=== PATIENT | male | born 1990 | race Caucasian/White ===

== ENCOUNTER 2017-02-08 06:47 | Observation (INO) ==
[2017-02-08] MEDS ORDERED: *HR* HYDROmorphone (PF) 1 MG/ML SYRINGE IVP ONE (08:04)
[2017-02-08] MEDS ORDERED: Ondansetron 4 MG/2 ML VIAL IVP ONE ×2 (08:05→10:53)
[2017-02-08] MEDS ORDERED: Dexamethasone 4 MG/ML VIAL IVP ONE (08:48)
[2017-02-08 09:08] LABS: Basophils % 0.1 %; Hematocrit 45.6 % (37.5-50.1); Hemoglobin 15.5 g/dL (12.9-16.9); Immature Granulocytes % 0.3 % (0-4); Lymphocytes # 1.3 K/mcL (0.6-4.6); Mean Corpuscular Hemoglobin 29.9 pg (28.0-33.3); Mean Corpuscular Volume 87.9 fL (83.0-100.0); Mean Platelet Volume 9.3 fL (9.4-12.4); Monocytes # 1.6 K/mcL (0.0-1.3); Monocytes % 8.5 %; Neutrophils # 15.6 K/mcL (1.6-8.9); Platelet Count 230 K/mcL (140-400); Red Blood Count 5.19 M/mcL (4.19-5.50); Red Cell Distribution Width 12.1 % (11.5-14.5); Segmented Neutrophils % 84.1 %
[2017-02-08 09:25] LABS: BUN/Creatinine Ratio 13 (6-26); Blood Urea Nitrogen 11 mg/dL (8-26); Calcium 9.7 mg/dL (8.6-10.8); Carbon Dioxide 24 mEq/L (19-29); Chloride 104 mEq/L (98-109); Glucose 100 mg/dL (70-99); Osmolality,Calculated 287 (280-300); Potassium 3.9 mEq/L (3.5-4.5); Sodium 139 mEq/L (136-145); eGFR For African Americans > 60 (> 60); eGFR For Non-African Americans > 60 (> 60)
--- NOTE | 2017-02-08 09:26 | Emergency Department Note ---
Disposition Clinical Impression: Facial cellulitis Sepsis Qualifiers: Sepsis type: sepsis due to unspecified organism Qualified Code(s): A41.9 - Sepsis, unspecified organism Disposition: Admitted As Inpatient Condition: Fair Time of Disposition: 10:55 Dental HPI - General Chief complaint: ED General Medical Stated complaint: facial swelling/dental Time Seen by Provider: 02/08/17 07:20 Source: patient Mode of arrival: ambulatory Limitations: no limitations Nursing Notes Reviewed: Yes Vital Signs Reviewed: Yes - History of Present Illness HPI Narrative: 26-year-old male with left maxillary facial swelling, have #10 tooth infection, he was seen by a dentist yesterday and they were concerned that he had a facial abscess. Patient states that he is mostly concerned because he was given a prescription for clindamycin, he did take a few pills, he was given 300 mg 4 times a day, but he also had several episodes of emesis he states that the pain and the swelling in his left face is worse since yesterday Pt Subjective Complaint: dental pain Location: Tooth # (10) 1 - swelling pain Onset (ago): day(s) (3) Duration: intermittent Pain Severity: moderate Pain scale (1-10): 7 Improves with: nothing, NSAIDs (Ibuprofen) Context: history of dental caries Associated symptoms: Reports: none, fever. Denies: gum swelling, tongue swelling, pain with swallowing, ear pain, sore throat Treatment prior to arrival: oral analgesic (NSAIDS) - Related Data Home Medications Medication Instructions Recorded Confirmed Benzocaine 20% [Orajel] 1 appl MM PER PKG DI PRN 02/08/17 02/08/17 Clindamycin [Cleocin] 300 mg PO QID 02/08/17 02/08/17 Ibuprofen [Motrin] 800 mg PO Q8HR 02/08/17 02/08/17 Allergies Allergy/AdvReac Type Severity Reaction Status Date / Time Cefaclor [From Ceclor] Allergy Rash Verified 08/18/15 18:18 All systems ED: reviewed and negative except as stated. Constitutional: Reports: as per HPI, fever. Denies: chills ENT ED: Reports: as per HPI, dental pain Cardiovascular: Denies: chest pain, palpitations Respiratory: Denies: cough, dyspnea Gastrointestinal: Denies: abdominal pain, nausea Genitourinary: Denies: urgency, dysuria Musculoskeletal: Denies: back pain, neck pain Integumentary: Denies: rash Past Medical History - Past Medical History Attestation: Yes The following information was validated with the patient. Source: patient Medical history: Reports: no medical history Psychiatric history: Reports: no psych history - Social History Smoking Status: Current every day smoker Smokeless Tobacco Status: No Alcohol use: Reports: none Drug use: Reports: marijuana Physical Exam Constitutional: alert and oriented, in NAD, mild tachycardic HEENT: NCAT, sclera anicteric, PERRLA bilaterally, normal external ears bilaterally, nasal septum nondeviated, poor dentition, tenderness palpation around the anterior aspect of the maxillary teeth with edema, edema and swelling tracking up the left maxillary face and his cheek bone and some periorbital edema noted, positive painful extraocular motor movement of the left eye Neck: normal inspection, neck is supple, trachea midline Resp: normal chest inspection, CTA bilaterally, no resp distress CV: RRR, no m/g/r Back: normal inspection, no tenderness to palpation Neuro: A&O3, renal nerves II through XII grossly intact bilaterally no gross motor or sensory deficits bilaterally Skin: No rashes, skin warm, dry, intact - General Limitations: no limitations General appearance: alert, in no apparent distress Course Course Narrative: 26-year-old male with concern for maxilla and maxillary facial abscess, significant swelling to the left anterior maxillary region tracking up to his left periorbital region with some extraocular movement pain, we have a CT scan of his face, basic lab work including a lactate and blood cultures, plan to discuss with his dentist as well to see if he has oral surgery available says root canal planned for - Reevaluation(s) Reevaluation #1: Discussed with Rads, no obvious abscess at teeth but soft tissue swelling up to maxillary alveolar ridge. Facial cellulitis, with no definitive abscess. Reevaluation #2: Given failed outpatient antibiotic therapy, criteria for seizures with source being facial cellulitis, admitting the patient for IV antibiotics, does not meet criteria for severe sepsis at this time as he is not elevated lactate normal endorgan function, however we will give normal saline, admitted to medicine service Dr. Valadez accepting Time: 10:54 - Consultations Consultation #1: Dr Branch dentist at [facility] states that if abscess and patient is stable , they will see for root canal on . Time: 10:28 Vital Signs Temperature 98.3 F 02/08/17 06:49 Pulse Rate 81 02/08/17 06:49 Respiratory Rate 16 02/08/17 06:49 Blood Pressure 136/82 02/08/17 06:49 O2 Sat by Pulse Oximetry 100 02/08/17 06:49 Temperature 98.3 F 02/08/17 06:49 Pulse Rate 93 02/08/17 10:33 Respiratory Rate 16 02/08/17 10:33 Blood Pressure 133/75 02/08/17 10:33 O2 Sat by Pulse Oximetry 97 02/08/17 10:33 Oxygen Delivery Oxygen Delivery Room Air Dental/Oral - MDM Narrative Medical decision making narrative: 26-year-old male with sepsis and facial cellulitis admitted to medicine service for IV antibiotics - Differential Diagnosis Likely: dental caries, toothache, dental abcess - Medical Records Medical records reviewed: Yes I reviewed the patient's medical records. - Lab Data Lab results reviewed: Yes I reviewed the patient's lab results. Result diagrams: 02/08/17 08:59 02/08/17 08:59 Lab Results 02/08/17 02/08/17 02/08/17 Range/Units 08:59 08:59 08:59 WBC 18.6 H (4.3-11.1) K/mcL RBC 5.19 (4.19-5.50) M/mcL Hgb 15.5 (12.9-16.9) g/dL Hct 45.6 (37.5-50.1) % MCV 87.9 (83.0-100.0) fL MCH 29.9 (28.0-33.3) pg MCHC 34.0 (31.6-35.5) g/dL RDW 12.1 (11.5-14.5) % Plt Count 230 (140-400) K/mcL MPV 9.3 L (9.4-12.4) fL Immature Gran % 0.3 (0-4) % Seg Neutrophils % 84.1 % Lymphocytes % 7.0 % Monocytes % 8.5 % Eosinophils % 0.0 % Basophils % 0.1 % Neutrophils # 15.6 H (1.6-8.9) K/mcL Lymphocytes # 1.3 (0.6-4.6) K/mcL Monocytes # 1.6 H (0.0-1.3) K/mcL Eosinophils # 0.0 (0.0-0.6) K/mcL Basophils # 0.0 (0.0-0.2) K/mcL Immature Plt Fraction 3.0 (1.1-6.1) % Sodium 139 (136-145) mEq/L Potassium 3.9 (3.5-4.5) mEq/L Chloride 104 (98-109) mEq/L Carbon Dioxide 24 (19-29) mEq/L BUN 11 (8-26) mg/dL Creatinine 0.86 (0.72-1.25) mg/dL Est GFR ( Amer) > 60 (> 60) Est GFR (Non-Af Amer) > 60 (> 60) BUN/Creatinine Ratio 13 (6-26) Glucose 100 H (70-99) mg/dL Calculated Osmolality 287 (280-300) Lactic Acid 0.7 (0.5-2.2) mmol/L Calcium 9.7 (8.6-10.8) mg/dL - Radiology Data Radiology results reviewed: Yes I reviewed the patient's radiology results. Face CT 02/08/17 08:04 IMPRESSION: Findings compatible with left facial cellulitis. No evidence of abscess. No evidence of significant periodontal disease. D/ / Charles Moreno MD / Charles Moreno MD Interpreting Provider: Charles Moreno MD Attestation Statement - Attestation Attestation: I personally interviewed and examined this patient and my medical decision- making was reviewed with the ED Resident Physician, Dr. Duggan I agree with the documented findings, disposition and treatment plan as described except to the extent set forth below. Patient is an otherwise healthy 26-year-old white male who presents to the emergency department with gradually worsening left-sided facial swelling, dental pain and facial pain. Patient states he was seen by his dentist 2 days ago in the office for tooth pain and mild facial edema. Patient was diagnosed with a dental abscess, was started on clindamycin antibiotics, and feels his symptoms are worsening. Patient presents with moderate facial edema overlying the left face primarily over the maxillary area and left lateral nasal and periorbital areas. Patient states that he has been having nausea and vomiting since starting the antibiotics and has not been able tolerate his last 2 doses. Patient complains of subjective fever and chills, and significant facial discomfort. Patient denies any difficulty swallowing or managing secretions, no shortness of breath or difficulty breathing and does not feel throat tightening or symptoms of throat tightening. Physical exam findings as documented. Patient with presumed dental abscess that has caused significant facial edema maxillary sinus tenderness on the left and pain with extraocular movements of the left eye. She will be placed on a monitor IV saline well-established IV fluids steroids and antibiotics with pain control will be all initiated in the ED. We will obtain blood cultures and labs and imaging of the visual bones with contrast. Patient is hemodynamically stable with no evidence of airway compromise at this time and is resting comfortably at bedside. Patient's labs show an elevated white count with left shift. CT shows evidence of a left facial cellulitis without subcutaneous abscess and no presence of dental abscess. Patient received IV antibiotics here in the ED and will be admitted for further evaluation and management. Case was discussed with hospitalist who accepted patient for admission. Patient has remained hemodynamically stable throughout his ED course and resting comfortably at this time.
[2017-02-08] MEDS ORDERED: Clindamycin 600 MG/50 ML 600 MG/50 ML IV.SOLN IVPB ONE (09:35)
[2017-02-08] MEDS ORDERED: Acetaminophen 325 MG TABLET PO PRN (12:05)
[2017-02-08] MEDS ORDERED: *HR* Promethazine 25 MG/ML VIAL IVP PRN (12:05)
[2017-02-08] MEDS ORDERED: Naloxone 0.4 MG/ML INJ IVP PRN (12:05)
[2017-02-08] MEDS ORDERED: Ondansetron 4 MG/2 ML VIAL IVP PRN (12:05)
[2017-02-08] MEDS: 0.9 % Sodium Chloride 1,000 ML IVC SCH ×2 (12:18→22:34)
[2017-02-08] MEDS: Ketorolac 30 MG/ML VIAL IVP PRN ×2 (12:18→18:52)
--- NOTE | 2017-02-08 13:08 | Internal Med History&Physical ---
<Jovany Leon - Last Filed: 02/08/17 13:54> Date of Encounter: 02/08/17 Time of Encounter: 12:30 Assessment and Plan (1) Facial cellulitis Current visit: Yes Status: Acute Patient presents with left maxillary facial swelling with #10 tooth infection. Patient states the symptoms began approximately 3 days ago and yesterday face became swollen when he was seen by his dentist. Dentist was concerned this was a facial abscess. His dentist instructed him if his face became more swollen to come to the ED which he did. Patient also states he is scheduled for root canal on 02/12/17 and dentist was concerned infection would interfere with procedure. His dentist placed him on clindamycin of which he took several pills but also had several episodes of emesis so he stopped taking medication. Clindamycin IV initiated in ED and will be continued. Follow-up labs ordered and pain medication will be administered PRN. (2) Leukocytosis Current visit: Yes Status: Acute Patient presents with facial cellulitis and left maxillary facial swelling with WBC of 18.6 due to infection in #10 tooth. Patient currently does not meet sepsis criteria based on only leukocytosis. Lactic acid level normal. Temp/HR/ RR all currently within normal range. IV clindamycin to be continued. Blood cultures and urine culture ordered. Pain medication PRN. Qualifiers: Leukocytosis type: unspecified Qualified Code(s): D72.829 - Elevated white blood cell count, unspecified (3) Pain, dental Current visit: Yes Status: Acute Patient presents with dental pain and infection in #10 tooth. Will monitor patient for pain and administer pain medication PRN. IV antibiotics for infection coverage. (4) DVT prophylaxis Current visit: Yes Status: Acute Patient to receive DVT prophylaxis due to admission protocol. Heparin 5,000 units SQ Q12 ordered. Internal Medicine - H&P: HPI Chief complaint: Facial swelling/dental pain Admitted From: Emergency Dept Plans for Post Hospital Care: Home History of present illness: Mr. Lux is a 26 year old male who presents from the ED with chief complaint of left maxillary facial swelling and dental pain. Patient states the symptoms began approximately 3 days ago and yesterday face became swollen when he was seen by his dentist. Dentist was concerned this was a facial abscess. His dentist instructed him if his face became more swollen to come to the ED which he did. Patient also states he is scheduled for root canal on and dentist was concerned infection would interfere with procedure. His dentist placed him on clindamycin of which he took several pills but also had several episodes of emesis so he stopped taking medication. Mr. Lux states he has never had symptoms like this before. He denies fever, tongue swelling, difficulty swallowing, ear pain, sore throat, dizziness, generalized weakness, chest pain, palpitations, or headache. Patient currently has no medical history and surgical history includes broken nose and tubes in ears bilaterally. Patient is at moderate risk due to infection status and will be placed in observation with orders for blood cultures 2, urine culture, continuation of IV clindamycin 600 mg, and medications to control pain. Patient does not currently meet sepsis criteria based solely on leukocytosis. Lactic acid/temp/HR/RR all within normal range currently on admission. Follow-up labs ordered. Patient to be monitored closely. Time spent with patient 30 minutes. Past Med Surg Social Fam HX - Past Medical History Source: patient Medical history: no medical history Psychiatric history: no psych history - Past Surgical History Surgical History: other (Bilateral tubes in ears, repair of broken nose) - Social History Smoking Status: Current every day smoker Packs per day: 1 PPD Smokeless Tobacco Status: No Alcohol use: none Drug use: marijuana Current living situation: Home Activity Level: Independent ambulation Recent Out of Country Travel Within the Last 8 Weeks: No Exposure or Possible Exposure to Illness During Travel: No - Family History Grandfather Living Status: Age at : 61 Cause of : esophageal cancer Hx Family Cardiac Disorders: Yes (heart attacks) Hx Family Respiratory Disorders: Yes (Asthma) Hx Family Cancer: Yes (Thyroid and Esophageal) Hx Family GI Disorders: Yes (Gerd) Hx Family Genitourinary Disorders: Yes (Kidney stones) Hx Family Endocrine Disorder: Yes (Diabetes) Hx Family Musculoskeletal Disorders: No Hx Family Neuromuscular Disorders: No Hx Family Neurologic Disorders: No Hx Family HEENT Disorders: No Hx Family Autoimmune Disorders: No Hx Family Reproductive Disorders: No Hx Family Psychosocial Disorders: No Hx Family Medical Disorders: No Father Living Status: Still Living Hx Family Endocrine Disorder: Yes (DM) Hx Family HEENT Disorders: Yes (Glaucoma) Mother Living Status: Still Living Hx Family Cancer: Yes (Thyroid) Brother Living Status: Still Living Hx Family Medical Disorders: No Sister Living Status: Still Living Hx Family Medical Disorders: No Internal Medicine - H&P: Meds Benzocaine 20% [Orajel] 1 appl MM PER PKG DI PRN 02/08/17 [History] Clindamycin [Cleocin] 300 mg PO QID 02/08/17 [History] Ibuprofen [Motrin] 800 mg PO Q8HR 02/08/17 [History] Allergies Cefaclor [From Ceclor] Allergy (Verified 08/18/15 18:18) Rash All Systems PM: A 10-system review of systems was performed and is negative for pertinent findings except as documented above in the HPI. - Constitutional Constitutional: no chills, no fever(s), no night sweats - EENT Eyes: no change in vision, no discharge, no pain, no photophobia Ears: no ear discharge, no ear pain, no tinnitus Nose, mouth and throat: as per HPI, dental pain, facial pain, lip swelling, mouth pain, no dysphagia, no nasal discharge, no neck pain, no sore throat - Breasts Breasts: as per HPI - Cardiovascular Cardiovascular ROS IM: no chest pain, no diaphoresis, no dyspnea, no lightheadedness, no palpitations, no syncope - Respiratory Respiratory: no cough, no dyspnea, no wheezing, no excessive phlegm production - Gastrointestinal Gastrointestinal: no abdominal pain, no diarrhea, no hematemesis, no hematochezia, no melena, no nausea, no vomiting - Genitourinary Genitourinary ROS male: as per HPI - Musculoskeletal Musculoskeletal ROS IM: no numbness, no tingling - Integumentary Integumentary IM: no rash, no unusual bruising - Neurological Neurological ROS: no confusion, no convulsions, no focal weakness, no numbness, no tingling, no tremor(s) - Psychiatric Psychiatric: as per HPI - Endocrine Endocrine IM: as per HPI - Hematologic/Lymphatic Hematologic/Lymphatic: no easy bruising - Allergic/Immunologic Allergic/Immunologic: as per HPI - Constitutional Vitals: Temp Pulse Resp BP Pulse Ox 98.0 F 79 18 156/85 96 02/08/17 11:44 02/08/17 11:44 02/08/17 11:44 02/08/17 11:44 02/08/17 11:44 General appearance: Present: cooperative, A&O X 3, pleasant, no acute distress, answers questions appropriately - Head Head exam: Present: atraumatic, normocephalic - Eye Eye exam: Present: PERRL, conjuntiva pink, sclera anicteric Pupils: Present: PERRL - ENT ENT exam: Present: normal exam, normal external ear exam - Neck Neck exam general surgery: Present: supple, trachea midline. Absent: lymphadenopathy - Respiratory Respiratory exam: Present: CTAB. Absent: accessory muscle use, rales, rhonchi, wheezes - Cardiovascular Cardiovascular exam: Present: RRR, +S1, +S2. Absent: diastolic murmur, gallop, rubs, systolic murmur - GI/Abdominal GI/Abdominal exam: Present: normal bowel sounds, soft, no peritoneal signs. Absent: distended, tenderness - Rectal Rectal exam: Present: deferred - Additional comments: exam deferred. - Extremities Exam Extremities exam: Present: warm, radial pulses palpable and symetrical. Absent : calf tenderness, cyanotic, pedal edema - Back Exam Back exam: Present: normal inspection - Neurological Exam Neurological exam: Present: CN II-XII intact, oriented X3, no focal deficits. Absent: pronater drift, facial droop, speech deficit - Psychiatric Psychiatric exam: Present: normal affect, normal mood - Skin Skin exam: Present: dry, intact Internal Med - H&P Results - Labs CBC & Chem 7: 02/08/17 08:59 02/08/17 08:59 - Diagnostic Studies Other Images Additional comments: Impressions Face CT 02/08/17 08:04 IMPRESSION: Findings compatible with left facial cellulitis. No evidence of abscess. No evidence of significant periodontal disease. D/ / Charles Moreno MD / Charles Moreno MD Interpreting Provider: Charles Moreno MD <Marino Valadez - Last Filed: 02/08/17 13:58> Date of Encounter: 02/08/17 Time of Encounter: 13:00 Internal Medicine - H&P: HPI History of present illness: Mr. Lux is a 26 year old male All Systems PM: A 10-system review of systems was performed and is negative for pertinent findings except as documented above in the HPI. - Constitutional Vitals: Temp Pulse Resp BP Pulse Ox 98.0 F 79 18 156/85 96 02/08/17 11:44 02/08/17 11:44 02/08/17 11:44 02/08/17 11:44 02/08/17 11:44 Internal Med - H&P Results - Labs CBC & Chem 7: 02/08/17 08:59 02/08/17 08:59 - Attending Attestation I examined this patient and my medical decision-making was reviewed with the nurse practitioner. I agree with the documented history of present illness, review of systems, past medical, surgical social and family histories and examination findings, disposition and treatment plan as described above except to any changes set forth below. 26-year-old male patient presenting with cellulitis involving the left maxillary region related to possible dental/root canal abscess. We will treat with IV antibiotics. Monitor vital signs. Follow culture results.
[2017-02-08 14:23] LABS: Bilirubin,Urine Negative (Negative); Blood,Urine Negative (Negative); Clarity,Urine Clear (Clear); Color,Urine Yellow (Yellow); Glucose,Urine (UA) 100 mg/dL (Normal); Ketones,Urine >=160 mg/dL (Negative); Leukocyte Esterase,Urine Negative (Negative); Nitrite,Urine Negative (Negative); PH,Urine 6.5 pH Units (5.0-8.0); Protein,Urine Trace mg/dL (Neg-Trace); Specific Gravity,Urine > 1.030 (1.010-1.025); Urobilinogen,Urine Normal (Normal)
[2017-02-08 14:25] LABS: Bacteria,Urine None Seen per hpf (None-Few); Hyaline Casts,Urine None Seen per lpf (None-Few); RBC,Urine 0-3 per hpf (0-3); Squamous Epithelial Cell,Urine Moderate per lpf (None-Few); WBC,Urine 0-3 per hpf (0-3)
[2017-02-08 14:28] LABS: Amphetamine Screen,Urine Negative ng/mL (Cutoff=1000); Barbiturate Screen,Urine Negative ng/mL (Cutoff=200); Benzodiazepines Screen,Urine Negative ng/mL (Cutoff=200); Cannabinoid Screen,Urine Positive ng/mL (Cutoff = 50); Cocaine Screen,Urine Positive ng/mL (Cutoff= 300); Opiate Screen,Urine Positive ng/mL (Cutoff=300); Phencyclidine Screen,Urine Negative ng/mL (Cutoff=25)
[2017-02-08] MEDS: *HR* Heparin 5,000 UNIT/ML VIAL SQ SCH (16:22)
[2017-02-08] MEDS: Clindamycin 600 MG/50 ML 600 MG/50 ML IV.SOLN IVPB SCH (16:23)
[2017-02-09] MEDS: Clindamycin 600 MG/50 ML 600 MG/50 ML IV.SOLN IVPB SCH ×3 (00:18→15:13)
[2017-02-09] MEDS: Ketorolac 30 MG/ML VIAL IVP PRN ×3 (01:10→13:38)
[2017-02-09 05:13] LABS: Basophils % 0.1 %; Hematocrit 42.6 % (37.5-50.1); Hemoglobin 14.4 g/dL (12.9-16.9); Immature Granulocytes % 0.4 % (0-4); Lymphocytes # 1.6 K/mcL (0.6-4.6); Lymphocytes % 9.8 %; Mean Corpuscular HGB Conc 33.8 g/dL (31.6-35.5); Mean Corpuscular Hemoglobin 29.9 pg (28.0-33.3); Mean Corpuscular Volume 88.4 fL (83.0-100.0); Mean Platelet Volume 9.8 fL (9.4-12.4); Monocytes # 1.3 K/mcL (0.0-1.3); Monocytes % 7.9 %; Neutrophils # 13.5 K/mcL (1.6-8.9); Platelet Count 235 K/mcL (140-400); Red Blood Count 4.82 M/mcL (4.19-5.50); Segmented Neutrophils % 81.8 %
[2017-02-09 05:27] LABS: BUN/Creatinine Ratio 17 (6-26); Blood Urea Nitrogen 14 mg/dL (8-26); Calcium 9.1 mg/dL (8.6-10.8); Carbon Dioxide 20 mEq/L (19-29); Chloride 109 mEq/L (98-109); Glucose 110 mg/dL (70-99); Osmolality,Calculated 287 (280-300); Potassium 4.2 mEq/L (3.5-4.5); Sodium 138 mEq/L (136-145); eGFR For African Americans > 60 (> 60); eGFR For Non-African Americans > 60 (> 60)
[2017-02-09] MEDS: *HR* Heparin 5,000 UNIT/ML VIAL SQ SCH ×2 (06:37→06:40)
[2017-02-09] MEDS: 0.9 % Sodium Chloride 1,000 ML IVC SCH (10:07)
--- NOTE | 2017-02-09 10:19 | Internal Med Progress Note ---
Date of Encounter: 02/09/17 Time of Encounter: 10:14 - Assessment and plan (1) Facial cellulitis Current Visit: Yes Status: Acute (2) Pain, dental Current Visit: Yes Status: Acute (3) DVT prophylaxis Current Visit: Yes Status: Acute - Subjective Interval history: Mr. Colt Lux is a 26-year-old male who has dental caries and his dentist is planning to do dental procedure on . He was given antibiotics mainly clindamycin some of which he could not take because of nausea. He came to ER due to increased left facial swelling was a concern if he might have developed an abscess. CT face ruled out facial abscess drainage shows slightly enlarged adenoids and tonsils with the some stones in his tonsils. He is continued on IV antibiotics. Follow-up CBC ordered - Constitutional Vitals: Temp Pulse Resp BP Pulse Ox 97.3 F L 76 16 121/80 99 02/09/17 06:36 02/09/17 06:36 02/09/17 06:36 02/09/17 06:36 02/09/17 06:36 General appearance: Present: cooperative, A&O X 3, pleasant, no acute distress, answers questions appropriately - Head Head exam: Present: atraumatic, normocephalic - Eye Eye exam: Present: PERRL, conjuntiva pink, sclera anicteric Pupils: Present: PERRL - Neck Neck exam general surgery: Present: supple, trachea midline. Absent: lymphadenopathy - Respiratory Respiratory exam: Present: CTAB. Absent: accessory muscle use, rales, rhonchi, wheezes - Cardiovascular Cardiovascular exam: Present: RRR, +S1, +S2. Absent: diastolic murmur, gallop, rubs, systolic murmur - GI/Abdominal GI/Abdominal exam: Present: normal bowel sounds, soft, no peritoneal signs. Absent: distended, tenderness - Extremities Exam Extremities exam: Present: warm, radial pulses palpable and symetrical. Absent : calf tenderness, cyanotic, pedal edema - Neurological Exam Neurological exam: Present: CN II-XII intact, oriented X3, no focal deficits. Absent: pronater drift, facial droop, speech deficit - Skin Skin exam: Present: dry, intact Internal Medicine: Result - Labs CBC & Chem 7: 02/09/17 04:24 02/09/17 04:24 Labs: Short CBC 02/09/17 Range/Units 04:24 WBC 16.5 H (4.3-11.1) K/mcL Hgb 14.4 (12.9-16.9) g/dL Hct 42.6 (37.5-50.1) % Plt Count 235 (140-400) K/mcL Neutrophils # 13.5 H (1.6-8.9) K/mcL BMP 02/09/17 04:24 Sodium 138 Potassium 4.2 Chloride 109 Carbon Dioxide 20 BUN 14 Creatinine 0.82 Glucose 110 H Calcium 9.1 Urine 02/08/17 Range/Units 14:11 Urine Color Yellow (Yellow) Urine Clarity Clear (Clear) Urine pH 6.5 (5.0-8.0) pH Units Ur Specific [place] > 1.030 H (1.010-1.025) Urine Protein Trace (Neg-Trace) mg/dL Urine Glucose (UA) 100 H (Normal) mg/dL Consult Discharge Plan - Plan Referrals: NO,PCP [Primary Care Provider] -
[2017-02-09] MEDS ORDERED: *HR* HYDROcodone/Acet 5/325 mg TABLET PO PRN ×2 (11:07→12:42)
[2017-02-09 14:48] VITALS: BP 135/88
--- NOTE | 2017-02-09 16:33 | Discharge Summary ---
Date of Encounter: 02/09/17 Time of Encounter: 16:28 - Discharge Diagnosis (1) Facial cellulitis Priority: Primary Status: Acute (2) Pain, dental Priority: Secondary Status: Acute (3) DVT prophylaxis Priority: Secondary Status: Acute - Discharge Medications Prescriptions: Clindamycin [Cleocin] 300 mg PO QID #40 capsule Omeprazole Magnesium [Prilosec Otc] 20 mg PO DAILY #30 tablet. Home Medications: Benzocaine 20% [Orajel] 1 appl MM PER PKG DI PRN 02/08/17 [History] Ibuprofen [Motrin] 800 mg PO Q8HR 02/08/17 [History] Acetaminophen [Tylenol] 650 mg PO Q6HR PRN #0 tablet 02/09/17 [Rx] Clindamycin [Cleocin] 300 mg PO QID #40 capsule 02/09/17 [Rx] Omeprazole Magnesium [Prilosec Otc] 20 mg PO DAILY #30 tablet. 02/09/17 [Rx] Allergies/Adverse Reactions: Allergies Cefaclor [From [facility]] Allergy (Verified 08/18/15 18:18) Rash Date of admission: 02/08/17 10:58 Primary care physician: Dairo Colt Lux is a 26-year-old male who came in with left facial cellulitis. Apparently he was seen by his dentist as outpatient was started on clindamycin which she could not tolerate develop some nausea. He came to ER with left facial swelling and redness and started on IV clindamycin and his swelling has gone down. He can open and close his mouth no dysphagia or dysphonia or difficulty in handling his oral secretions. He said taking full diet now. He was advised to stay for another day for IV antibiotics however he is threatening to leave AMA. He has been explained the risks and complications and there is worsening of morbidity and potential mortality of leaving prematurely. He does not change his mind. Therefore he is given a prescription of clindamycin and Prilosec and advised to return to ER or hospital if he changes his mind and we can readmit him. CT face rule out any abscess and showed some cellulitis of face only. He will follow with his dentist Discharging clinician: Rico Bailey Anticipated date of discharge: 02/09/17 - Patient Status Disposition: Home, Self-Care Condition: Fair Overall status at discharge: patient is progressing back to baseline - Discharge Instructions Follow Up With: NO,PCP [Primary Care Provider] - - Diet and Activity Activity: resume usual activities as tolerated Diet: advance to your usual diet (Patient can open and close his jaw well he can eat okay and has no symptoms. He is advised to stay for another day for IV antibiotics which she has declined. He has been informed about increased risk of mortality and morbidity and possible complications associated with his decision. As he was threatening to leave AMA will write some scripts for him and asked him to return in case if it does not work or if it gets worse otherwise follow up with his family doctor and dentist.) Hospital course: Mr. Lux is a 26 year old male was admitted for facial cellulitis. Apparently he has been having some left facial swelling and he was seen by dentist who is planning to do some work on his teeth. He noted some swelling and give him clindamycin. However patient become nauseous and could not keep tender down. He came to ER and CT face was done which did not not show any abscess but confirms cellulitis. Patient to was given IV clindamycin which he tolerated well. I advised him to stay in hospital so that we can continue with IV antibiotic or at least give him a trial of oral antibiotic to see if he can tolerate but he is threatening to leave AMA. He has been informed about his urine drug screen showing multiple illicit drugs including cocaine marijuana. 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 He is given prescription for clindamycin and Prilosec. he will be discharged to home with instruction to return if he changes his mind.Patient can open and close his jaw well he can eat okay and has no symptoms. He is advised to stay for another day for IV antibiotics which she has declined. He has been informed about increased risk of mortality and morbidity and possible complications associated with his decision. As he was threatening to leave AMA will write some scripts for him and asked him to return in case if it does not work or if it gets worse otherwise follow up with his family doctor and dentist - Time Spent with Patient Total time spent providing and/or coordinating discharge services: Greater than 30 minutes - Constitutional Vitals: Temp Pulse Resp BP Pulse Ox 98.2 F 78 16 135/88 94 02/09/17 14:43 02/09/17 14:43 02/09/17 14:43 02/09/17 14:43 02/09/17 14:43 General appearance: Present: cooperative, A&O X 3, pleasant, no acute distress, answers questions appropriately - Head Head exam: Present: atraumatic, normocephalic Additional comments: Left facial examination showed some swelling around left cheek very mild erythema but when pressure placed and the zygomatic arch that is tender. CT face did not show any abscess which to be drained. It showed to have slightly enlarged tonsils and adenoid on the left side with some small stones in the tonsils. Parotid gland does not seem to be tender or enlarged and he can open and close jaw without any difficulty. - Eye Eye exam: Present: PERRL, conjuntiva pink, sclera anicteric Pupils: Present: PERRL - Neck Neck exam general surgery: Present: supple, trachea midline. Absent: lymphadenopathy - Respiratory Respiratory exam: Present: CTAB. Absent: accessory muscle use, rales, rhonchi, wheezes - Cardiovascular Cardiovascular exam: Present: RRR, +S1, +S2. Absent: diastolic murmur, gallop, rubs, systolic murmur - GI/Abdominal GI/Abdominal exam: Present: normal bowel sounds, soft, no peritoneal signs. Absent: distended, tenderness - Extremities Exam Extremities exam: Present: warm, radial pulses palpable and symetrical. Absent : calf tenderness, cyanotic, pedal edema - Neurological Exam Neurological exam: Present: CN II-XII intact, oriented X3, no focal deficits. Absent: pronater drift, facial droop, speech deficit - Skin Skin exam: Present: dry, intact
== END 2017-02-09 16:50 | disposition home or self-care (01) ==
LOC: EMEROO 06:47 → 3ANU 06:47
PROVIDERS: ADMIT Internal Medicine; ATTEND Internal Medicine